=== PATIENT | male | born 1985 | race Caucasian/White ===

== ENCOUNTER 2018-04-04 16:07 | Emergency (ER) | payer MEDICAID ==
[~2018-04-04] VITALS: Ht 182.9 cm; Wt 105.3 kg
[2018-04-04] MEDS ORDERED: ondansetron 4mg rapidly disintigrating tab PO ONE (16:55)
[2018-04-04] MEDS ORDERED: morphine 4 MG/ML inj SYRINge IM ONE (16:55)
[2018-04-04 17:25] LABS: BASOPHILS % (AUTO) 0.6 % (0-1); EOSINOPHILS # (AUTO) 0.2 X10'3 (0-0.9); EOSINOPHILS % (AUTO) 3.1 % (0-6); HEMATOCRIT 45.7 % (42.0-52.0); HEMOGLOBIN 15.7 g/dl (14.0-17.9); LYMPHOCYTES # (AUTO) 1.7 X10'3 (1.1-4.8); LYMPHOCYTES % (AUTO) 23.2 % (21-51); MEAN CORPUSCULAR HEMOGLOBIN 31.4 PG (27.0-31.0); MEAN CORPUSCULAR HGB CONC 34.5 % (33.0-36.5); MEAN CORPUSCULAR VOLUME 91.3 FL (78-98); MEAN PLATELET VOLUME 7.9 FL (7.4-10.4); MONOCYTES # (AUTO) 0.8 X10'3 (0-0.9); NEUTROPHILS # (AUTO) 4.4 X10'3 (1.8-7.7); NEUTROPHILS % (AUTO) 62.1 % (42-75); PLATELET COUNT 287 X10'3 (140-440); RED CELL DISTRIBUTION WIDTH 12.2 % (11.5-14.5); WHITE BLOOD COUNT 7.1 X10'3 (4.5-11.0)
[2018-04-04 17:41] LABS: ALANINE AMINOTRANSFERASE 23 U/L (12-78); ALBUMIN/GLOBULIN RATIO 1.2 (1.1-1.5); ALKALINE PHOSPHATASE 51 IU/L (46-116); ANION GAP 9 (8-16); ASPARTATE AMINO TRANSFERASE 14 U/L (10-37); BILIRUBIN,TOTAL 0.9 MG/DL (0.1-1.0); BLOOD UREA NITROGEN 6 MG/DL (7-18); BUN/CREATININE RATIO 7.1 (5.4-32.0); CALCIUM 8.7 MG/DL (8.5-10.1); CHLORIDE 100 MMOL/L (99-107); CREATININE 0.84 MG/DL (0.60-1.10); GLUCOSE 90 MG/DL (70-104); LIPASE 72 U/L (73-393); POTASSIUM 3.2 MMOL/L (3.5-5.1); SODIUM 138 MMOL/L (135-145); TOTAL CARBON DIOXIDE 28.9 MMOL/L (24-32); TOTAL PROTEIN 7.3 G/DL (6.4-8.2); eGFR > 90 ML/MIN
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
[2018-04-04] MEDS ORDERED: TRAM50TA2 PO (18:38)
[2018-04-04] MEDS ORDERED: traMADol 50MG tablet PO ONE (18:40)
[2018-04-04 18:50] VITALS: BP 143/90
[2018-04-04 18:50] LABS: CLARITY,URINE CLEAR (Clear); COLOR,URINE YELLOW (Yellow); GLUCOSE, URINE NEGATIVE (Neg); KETONES,URINE NEGATIVE (Neg); LEUKOCYTE ESTERASE ,URINE NEGATIVE (Neg); NITRITES, URINE NEGATIVE (Neg); OCCULT BLOOD,URINE TRACE-INTACT (Neg); PROTEIN,URINE NEGATIVE (Neg); UROBILINOGEN,URINE 0.2 E.U/dL (0.2-1.0)
[2018-04-04 18:58] LABS: UA COLLECTION TYPE URINAL
[2018-04-04 18:59] LABS: BACTERIA,URINE NONE SEEN /HPF (Neg); RBC,URINE 0-2 /HPF (0-2); SQUAMOUS EPITHELIAL CELL,UR FEW /LPF (FEW); WBC,URINE NONE SEEN /HPF (0-4)
== END 2018-04-04 18:53 | disposition home or self-care (01) ==
LOC: ER 16:07
DX: R10.33 Periumbilical pain (principal); R06.02 Shortness of breath; R11.10 Vomiting, unspecified; F32.9 Major depressive disorder, single episode, unspecified; Z79.899 Other long term (current) drug therapy
CPT/HCPCS: 36415; 74176; 80053; 81001; 83690; 85025; 96372; 99284; J2270

== ENCOUNTER 2021-07-11 08:02 | Day surgery (SDC) | payer MEDICAID ==
[2021-07-08 12:34] LABS: BASOPHILS # (AUTO) 0.1 X10'3 (0-0.2); BASOPHILS % (AUTO) 1.2 % (0-1); EOSINOPHILS # (AUTO) 0.1 X10'3 (0-0.9); EOSINOPHILS % (AUTO) 2.2 % (0-6); LYMPHOCYTES # (AUTO) 1.6 X10'3 (1.1-4.8); LYMPHOCYTES % (AUTO) 24.4 % (21-51); MEAN CORPUSCULAR HEMOGLOBIN 30.9 PG (27.0-31.0); MEAN CORPUSCULAR HGB CONC 34.1 g/dL (33.0-36.5); MEAN CORPUSCULAR VOLUME 90.7 FL (78-98); MEAN PLATELET VOLUME 7.6 FL (7.4-10.4); MONOCYTES # (AUTO) 0.8 X10'3 (0-0.9); MONOCYTES % (AUTO) 12.7 % (2-12); NEUTROPHILS % (AUTO) 59.5 % (42-75); PRE OP HEMATOCRIT 46.3 % (42.0-52.0); PRE OP HEMOGLOBIN 15.8 g/dL (14.0-17.9); PRE OP PLATELET COUNT 277 X10'3 (140-440); RED CELL DISTRIBUTION WIDTH 12.7 % (11.5-14.5)
[2021-07-08 12:53] LABS: ALBUMIN 4.1 G/DL (3.4-5.0); ALBUMIN/GLOBULIN RATIO 1.1 (1.1-1.5); ALKALINE PHOSPHATASE 55 IU/L (46-116); BLOOD UREA NITROGEN 9 MG/DL (7-18); CALCIUM 9.5 MG/DL (8.5-10.1); CHLORIDE 103 MMOL/L (99-107); PRE OP ALT 37 U/L (30-65); PRE OP ANION GAP 12 (8-16); PRE OP AST 22 U/L (10-37); PRE OP BILIRUB, TOTAL 0.5 MG/DL (0.0-1.0); PRE OP GLUCOSE 94 MG/DL (70-104); PRE OP SODIUM 139 MMOL/L (135-145); eGFR > 90 ML/MIN
[2021-07-08 13:27] LABS: PRE OP POTASSIUM 4.1 MMOL/L (3.4-5.1)
[~2021-07-11] VITALS: Ht 182.9 cm; Wt 133.5 kg
[~2021-07-11 08:02] MED LIST: BUPIVAcaine 0.5% inj/PF 0 ML ONE; CITA40TA22 PO; LIDOcaine 1% 30ml preserv. free vial ONE; ceFAZolin inj. 3,000 MG in normal saline 100ml IV soln 100 ML IV ONE; famotidine 20mg tablet PO ONE; ringers solution, lacted 1,000 ML IV SCH
[2021-07-11 08:10] VITALS: BP 158/89
[2021-07-11] MEDS ORDERED: ringers solution, lacted 1,000 ML IV SCH (10:15)
[2021-07-11] MEDS ORDERED: labetalol 20mg/4ml (5mg/ml) syringe IV PRN (10:15)
[2021-07-11] MEDS ORDERED: morphine 2 MG/ML inj. syringe IV PRN (10:15)
[2021-07-11] MEDS ORDERED: hydrALAZINE 20mg/ml inj. IV PRN (10:15)
[2021-07-11] MEDS ORDERED: fentaNYL/PF 50MCG/1 ML 2ML syringe IV PRN ×2 (10:15)
[2021-07-11] MEDS ORDERED: morphine 4 MG/ML inj SYRINge IV PRN (10:15)
[2021-07-11] MEDS ORDERED: ondansetron/PF 4mg/2ml inj IV PRN (10:15)
[2021-07-11] MEDS ORDERED: fentaNYL/PF 50MCG/1 ML 2ML syringe ONE (10:18)
[2021-07-11] MEDS ORDERED: midazolam 1 mg/ML 2ml injection ONE (10:18)
[2021-07-11] MEDS ORDERED: LIDOcaine 2% (20mg/ml) 5ml vial ONE (10:21)
[2021-07-11] MEDS ORDERED: propofol inj 20 ML IV ONE ×2 (10:21)
[2021-07-11] MEDS ORDERED: bacitracin 15gm ointment TP ONE (10:30)
[2021-07-11] MEDS ORDERED: HYDROcodone/acetaminophen 10/325mg tab PO PRN (10:45)
--- NOTE | 2021-07-11 10:45 | NUR ---
PT ARRIVED TO [facility] VIA [facility] A ACCOMPANIED BY DR. CRAIG-ANESTHESIA REPORT GIVEN, VSS, PT WAKING UP, DENIES PAIN, DSG-CDI AT UMBILICUS, PIV 20G-LA/C, SCDS ON.
[2021-07-11 10:46] VITALS: BP 132/82
[2021-07-11 10:50] VITALS: BP 122/67
[2021-07-11 11:00] VITALS: BP 115/66
[2021-07-11 11:10] VITALS: BP 121/65
[2021-07-11 11:20] VITALS: BP 139/81
--- NOTE | 2021-07-11 11:50 | NUR ---
PT DRESSED, VSS, DENIES PAIN, ABLE TO AMBULATE W/O PROBLEM, PIV D/CD-CANULA INTACT, NO CHANGE TO DRSG AT [facility], D/C INSTRUCTIONS GIVEN TO PT-ALL QUESTIONS ANSWERED, TAKEN VIA W/C DOWNSTAIRS WITH BELONGINGS-WAITING FOR MOM TO BUSINESS OPERATIONS SPECIALIST.
== END 2021-07-11 11:55 | disposition home or self-care (01) ==
LOC: PAS 08:02
PROVIDERS: ATTEND Surgery
DX: S30.851A Superficial foreign body of abdominal wall, initial encounter (principal); F41.8 Other specified anxiety disorders; G89.29 Other chronic pain; E66.01 Morbid (severe) obesity due to excess calories; Z68.38 Body mass index [BMI] 38.0-38.9, adult; Z20.822 Contact with and (suspected) exposure to COVID-19; Z98.890 Other specified postprocedural states; Z79.899 Other long term (current) drug therapy; X58.XXXA Exposure to other specified factors, initial encounter; Y93.89 Activity, other specified; Y92.89 Other specified places as the place of occurrence of the external cause; Y99.8 Other external cause status
CPT/HCPCS: 36415; 49999; 80053; 82948; 85025; 87635; C9803; J0690; J2250; J2704; J3010; J3490; J7120; Z7506; Z7512; 93005; A4618; A6449; A7000; S0020